=== PATIENT | female | born 1940 | race Caucasian/White ===

== ENCOUNTER → 2017-05-19 | Outpatient (CLI) | payer OTHER ==
--- NOTE | 2017-05-19 16:44 | KCIC ---
COMPLETE ABDOMINAL ULTRASOUND Clinical History: Suprapubic and periumbilical pain. Comparison: None. Technique: Sonographic examination of the abdomen was performed and multiple grayscale and color Doppler static images were obtained. Bladder is also imaged. Findings: Most of the liver is visualized and is homogeneous. The liver measures 12.4 cm. Ultrasound is not sensitive for detecting solid liver lesions. Portal flow is hepatopetal. The common bile duct is mildly dilated measuring up to 8 mm in diameter. The gallbladder wall is normal. Per report, sonographic Olson sign is negative. There is no cholelithiasis or pericholecystic fluid. The pancreas appears within normal limits. The right kidney is normal in echotexture and measures 10.9 cm. The left kidney is normal in echotexture and measures 12.9 cm. Corticomedullary differentiation is preserved. There is no hydronephrosis. The spleen is not enlarged, measuring 9.4 cm. Visualized portions of the abdominal aorta and IVC are normal. No urinary bladder wall thickening. The bladder is not well distended. Ureteral jets are not identified. IMPRESSION: Common bile duct is mildly dilated. No intrahepatic duct dilation is identified. Suggest correlation with laboratory values. Electronically signed by: Chris Hoff MD (05/19/2017 4:40 PM) [id number]
== END | disposition home or self-care (01) ==
LOC: KCIC US 14:04
PROVIDERS: ATTEND Family Medicine
DX: R10.33 Periumbilical pain (principal); Z90.710 Acquired absence of both cervix and uterus
CPT/HCPCS: 76700

== ENCOUNTER 2017-09-05 06:31 | Emergency (ER) | payer OTHER ==
[2017-09-05] MEDS: BENZONATATE 100 MG CAPSULE. PO (07:38)
[2017-09-05 08:55] LABS: ADD MAN DIFF? NO
[2017-09-05 09:01] LABS: BASO % 0 % (0-3); EOS # 0.1 x10^3/uL (0.0-0.7); EOS % 1 % (0-3); HEMATOCRIT 43.8 % (36.0-47.0); HEMOGLOBIN 14.7 g/dL (12.0-15.5); LYMPH # 0.7 x10^3/uL (1.0-4.8); LYMPH % 12 % (24-48); MEAN CORPUSCULAR HEMOGLOBIN 31 pg (25-35); MEAN CORPUSCULAR HGB CONC 34 g/dL (31-37); MEAN CORPUSCULAR VOLUME 92 fL (79-100); MONO # 0.8 x10^3/uL (0.0-1.1); MONO % 13 % (0-9); NEUT # 4.4 x10^3uL (1.8-7.7); NEUT % 74 % (31-73); PLATELET COUNT 182 x10^3/uL (140-400); RED BLOOD COUNT 4.76 x10^6/uL (3.50-5.40); RED CELL DISTRIBUTION WIDTH 12.4 % (11.5-14.5)
[2017-09-05 09:07] LABS: ANION GAP 8 (6-14); BLOOD UREA NITROGEN 13 mg/dL (7-20); BUN/CREATININE RATIO 19 (6-20); CALCIUM 9.7 mg/dL (8.5-10.1); CARBON DIOXIDE 31 mmol/L (21-32); CHLORIDE 103 mmol/L (98-107); CREATININE 0.7 mg/dL (0.6-1.0); GFR 81.6; GLUCOSE 141 mg/dL (70-99); POTASSIUM 3.7 mmol/L (3.5-5.1); SODIUM 142 mmol/L (136-145)
[2017-09-05 09:13] LABS: ALBUMIN 3.9 g/dL (3.4-5.0); ALK PHOS 75 U/L (46-116); ALT (SGPT) 11 U/L (14-59); AST (SGOT) 16 U/L (15-37); TOTAL BILIRUBIN 0.6 mg/dL (0.2-1.0); TOTAL PROTEIN 7.7 g/dL (6.4-8.2)
[2017-09-05] MEDS: IOHEXOL 300 MG/ML 100ML VIAL. IV (09:44)
[2017-09-05] MEDS ORDERED: CONTRAST GIVEN MC (09:45)
[2017-09-05 11:26] LABS: THYROID STIM HORMONE (TSH) 1.452 uIU/mL (0.358-3.74)
[2017-09-05 11:26] LABS: FREE T4 1.18 ng/dL (0.76-1.46)
== END 2017-09-05 11:50 | disposition home or self-care (01) ==
LOC: ER 06:31
DX: R05 Cough (principal); E04.1 Nontoxic single thyroid nodule; Z88.8 Allergy status to other drugs, medicaments and biological substances; Z88.6 Allergy status to analgesic agent; Z91.041 Radiographic dye allergy status
CPT/HCPCS: 36415; 71046; 71260; 80053; 84439; 84443; 85025; 99285-25; Q9967

== ENCOUNTER → 2017-10-09 | Outpatient (CLI) | payer OTHER | END | disposition home or self-care (01) | LOC: KCIC US 12:45 | DX: E04.2 Nontoxic multinodular goiter (principal) | CPT/HCPCS: 76536 ==

== ENCOUNTER → 2017-10-16 | Outpatient (CLI) | payer OTHER | END | disposition home or self-care (01) | LOC: US 13:26 | DX: E04.1 Nontoxic single thyroid nodule (principal); E11.9 Type 2 diabetes mellitus without complications; J44.9 Chronic obstructive pulmonary disease, unspecified | CPT/HCPCS: 76942; 88173; 88305 ==

== ENCOUNTER 2018-09-27 14:23 | Emergency (ER) | payer OTHER ==
[~2018-09-27] VITALS: Ht 170.2 cm; Wt 69.4 kg
[2018-09-27 15:00] LABS: BASO % 0 % (0-3); EOS % 0 % (0-3); HEMOGLOBIN 14.7 g/dL (12.0-15.5); LYMPH # 1.2 x10^3/uL (1.0-4.8); LYMPH % 12 % (24-48); MEAN CORPUSCULAR HEMOGLOBIN 32 pg (25-35); MEAN CORPUSCULAR HGB CONC 34 g/dL (31-37); MEAN CORPUSCULAR VOLUME 93 fL (79-100); MONO % 9 % (0-9); NEUT % 78 % (31-73); PLATELET COUNT 213 x10^3/uL (140-400); RED BLOOD COUNT 4.64 x10^6/uL (3.50-5.40); RED CELL DISTRIBUTION WIDTH 12.6 % (11.5-14.5); WHITE BLOOD COUNT 10.3 x10^3/uL (4.0-11.0)
[2018-09-27 15:02] LABS: BILIRUBIN,URINE NEGATIVE (NEG); CLARITY,URINE CLEAR; COLOR,URINE YELLOW; NITRITE,URINE NEGATIVE (NEG); PH,URINE 6.5; PROTEIN,URINE NEGATIVE (NEG-TRACE)
[2018-09-27 15:09] LABS: BARBITURATES NEG (NEG); BENZODIAZEPINES NEG (NEG); CANNABINOIDS NEG (NEG); COCAINE NEG (NEG); METHADONE NEG (NEG); OPIATES NEG (NEG); PHENCYCLIDINE NEG (NEG)
[2018-09-27 15:10] LABS: AMORPHOUS SEDIMENT,UR PRESENT /HPF; AMPHETAMINE/METHAMPHETAMINE NEG (NEG); BACTERIA,URINE 0 /HPF (0-FEW); SQUAMOUS EPITHELIAL CELL,UR OCC /LPF; WBC,URINE OCC /HPF (0-4)
--- NOTE | 2018-09-27 15:11 | RAD ---
RS Compliance Statement: One or more of the following individualized dose reduction techniques were utilized for this examination: 1. Automated exposure control 2. Adjustment of the mA and/or kV according to patient size 3. Use of iterative reconstruction technique CT head without contrast 09/27/2018 2:55 PM INDICATION: Weakness, multiple falls and dizziness. COMPARISON: None available TECHNIQUE: Multiple axial CT images of the head were obtained from skull base through the vertex without intravenous contrast. FINDINGS: Head: Ventricles, sulci and basal cisterns are within normal limits. There is no hydrocephalus. Jain-white matter differentiation is normal. There is no acute intracranial hemorrhage. There is no mass, mass effect or midline shift. Posterior fossa is normal in appearance. Low-attenuation in the periventricular white matter is suggestive of chronic small vessel ischemic changes. Visualized portions of the orbits are normal. Paranasal sinuses are well aerated. Mastoid air cells are well aerated. Scalp and calvaria are normal. IMPRESSION: No acute intracranial hemorrhage. Electronically signed by: Ann Marin MD (09/27/2018 3:08 PM) [facility]-[id number]
[2018-09-27 15:12] LABS: CALCIUM 9.4 mg/dL (8.5-10.1); CREATININE 0.7 mg/dL (0.6-1.0); GFR 81.4; POTASSIUM 4.1 mmol/L (3.5-5.1)
--- NOTE | 2018-09-27 15:13 | RAD ---
Chest radiograph 09/27/2018 3:02 PM INDICATION: Generalized weakness, dizziness COMPARISON: September 05, 2017 TECHNIQUE: Portable upright frontal view of the chest is provided. FINDINGS: The cardiomediastinal silhouette is within normal limits. There are no pleural effusions. There is no pulmonary vascular congestion. There is no pneumothorax. Patchy densities identified in the right upper lung. No significant osseous abnormality is identified. IMPRESSION: Patchy densities noted in the right upper lobe. Consideration may be given for developing infiltrate versus scarring or atelectasis. Electronically signed by: Ann Marin MD (09/27/2018 3:10 PM) [facility]-KCIC[facility]
[2018-09-27 15:17] LABS: ALBUMIN 3.7 g/dL (3.4-5.0); TOTAL BILIRUBIN 0.4 mg/dL (0.2-1.0); TOTAL PROTEIN 7.4 g/dL (6.4-8.2)
--- NOTE | 2018-09-27 16:27 | PHYS DOC ---
Past Medical History Past Medical History: Cancer, COPD, Diabetes-Type II, High Cholesterol, Hypothyroid, Other Additional Past Medical Histor: ULCERS,NEUROPATHY,BREAST CA/RADIATION Past Surgical History: Hysterectomy Additional Past Surgical Histo: HEMORRHOIDECTOMY, BACK SX Alcohol Use: None Drug Use: None Adult General Chief Complaint Chief Complaint: generalized weakness and nausea and dizziness [facility] HPI Patient is a 78 year old female who presents with complaining of generalized weakness, nausea, dizziness. Patient complaining of generalized weakness for several months without focal neuro deficit, patient also complaining of constant nausea without vomiting and dizziness patient has history of extensive depression and seen by her psychiatric one week ago. Patient's roommate states she has had severe depression and usually has dizziness and weakness in the morning and after 4 PM acting completely normal and moving around without any problem. Review of Systems Review of Systems Constitutional: Denies fever or chills, reports generalized weakness [] Eyes: Denies change in visual acuity, redness, or eye pain [] HENT: Denies nasal congestion or sore throat [] Respiratory: Denies cough or shortness of breath [] Cardiovascular: No additional information not addressed in HPI [] GI: Denies abdominal pain, nausea, vomiting, bloody stools or diarrhea [] : Denies dysuria or hematuria [] Musculoskeletal: Denies back pain or joint pain [] Integument: Denies rash or skin lesions [] Neurologic: Denies headache, focal weakness or sensory changes, reports dizziness [] Endocrine: Denies polyuria or polydipsia [] All other systems were reviewed and found to be within normal limits, except as documented in this note. Current Medications Current Medications Current Medications Medications (Trade) Dose Ordered Sig/Arelis Start Time Stop Time Status Last Admin Dose Admin Lorazepam (Ativan) 1 mg 1X ONCE 09/27/18 16:00 09/27/18 16:21 DC Sodium Chloride 500 ml @ 500 mls/hr 1X ONCE 09/27/18 16:30 09/27/18 17:29 DC 09/27/18 16:30 500 MLS/HR Allergies Allergies Allergies Coded Allergies Type Severity Reaction Last Updated Verified pregabalin Allergy Intermediate Hives 09/05/17 Yes lorazepam Allergy Mild Vertigo 09/27/18 Yes tramadol Allergy Mild Nausea 09/05/17 Yes Mzjidzz-Uln-Ocx Reductase Inhibitor Adverse Reaction Intermediate chest pain Yes Physical Exam Physical Exam Constitutional: Well nourished, mild distress, non-toxic appearance, talking very soft and slow. [] HENT: Normocephalic, atraumatic, oropharynx moist. Eyes: PERRLA, EOMI, conjunctiva normal, no discharge. [] Neck: Normal range of motion, no tenderness, supple, no stridor. [] Cardiovascular:Heart rate regular rhythm, no murmur [] Lungs & Thorax: Bilateral breath sounds clear to auscultation [] Abdomen: Bowel sounds normal, soft, no tenderness, no masses, no pulsatile masses. [] Skin: Warm, dry, no erythema, no rash. [] Back: No tenderness, no CVA tenderness. [] Extremities: No tenderness, no cyanosis, no clubbing, ROM intact, no edema. [] Neurologic: Alert and oriented X 3, normal motor function, normal sensory function, no focal deficits noted. [] Psychologic: Affect depressed Current Patient Data Vital Signs Vital Signs Date Time Temp Pulse Resp B/P (MAP) Pulse Ox O2 Delivery O2 Flow Rate FiO2 09/27/18 16:30 88 20 142/67 (92) 96 09/27/18 14:25 97.9 Room Air 97.9 Lab Values Laboratory Tests Test 09/27/18 14:35 09/27/18 14:37 09/27/18 14:52 White Blood Count 10.3 x10^3/uL (4.0-11.0) Red Blood Count 4.64 x10^6/uL (3.50-5.40) Hemoglobin 14.7 g/dL (12.0-15.5) Hematocrit 43.0 % (36.0-47.0) Mean Corpuscular Volume 93 fL (79-100) Mean Corpuscular Hemoglobin 32 pg (25-35) Mean Corpuscular Hemoglobin Concent 34 g/dL (31-37) Red Cell Distribution Width 12.6 % (11.5-14.5) Platelet Count 213 x10^3/uL (140-400) Neutrophils (%) (Auto) 78 % (31-73) H Lymphocytes (%) (Auto) 12 % (24-48) L Monocytes (%) (Auto) 9 % (0-9) Eosinophils (%) (Auto) 0 % (0-3) Basophils (%) (Auto) 0 % (0-3) Neutrophils # (Auto) 8.0 x10^3uL (1.8-7.7) H Lymphocytes # (Auto) 1.2 x10^3/uL (1.0-4.8) Monocytes # (Auto) 1.0 x10^3/uL (0.0-1.1) Eosinophils # (Auto) 0.0 x10^3/uL (0.0-0.7) Basophils # (Auto) 0.0 x10^3/uL (0.0-0.2) Urine Collection Type U cath Urine Color Yellow Urine Clarity Clear Urine pH 6.5 Urine Specific [place] 1.015 Urine Protein Negative mg/dL (NEG-TRACE) Urine Glucose (UA) 250 mg/dL (NEG) Urine Ketones (Stick) Negative mg/dL (NEG) Urine Blood Negative (NEG) Urine Nitrite Negative (NEG) Urine Bilirubin Negative (NEG) Urine Urobilinogen Dipstick 1.0 mg/dL (0.2 mg/dL) Urine Leukocyte Esterase Negative (NEG) Urine RBC 1-2 /HPF (0-2) Urine WBC Occ /HPF (0-4) Urine Squamous Epithelial Cells Occ /LPF Urine Amorphous Sediment Present /HPF Urine Bacteria 0 /HPF (0-FEW) Urine Mucus Slight /LPF Sodium Level 139 mmol/L (136-145) Potassium Level 4.1 mmol/L (3.5-5.1) Chloride Level 101 mmol/L (98-107) Carbon Dioxide Level 28 mmol/L (21-32) Anion Gap 10 (6-14) Blood Urea Nitrogen 18 mg/dL (7-20) Creatinine 0.7 mg/dL (0.6-1.0) Estimated GFR (Cockcroft-Gault) 81.4 BUN/Creatinine Ratio 26 (6-20) H Glucose Level 118 mg/dL (70-99) H Calcium Level 9.4 mg/dL (8.5-10.1) Magnesium Level 2.0 mg/dL (1.8-2.4) Total Bilirubin 0.4 mg/dL (0.2-1.0) Aspartate Amino Transferase (AST) 11 U/L (15-37) L Alanine Aminotransferase (ALT) 9 U/L (14-59) L Alkaline Phosphatase 78 U/L (46-116) Creatine Kinase 29 U/L (26-192) Troponin I Quantitative < 0.017 ng/mL (0.000-0.055) WN-Tnb-R-Type Natriuretic Peptide 32 pg/mL (0-449) Total Protein 7.4 g/dL (6.4-8.2) Albumin 3.7 g/dL (3.4-5.0) Albumin/Globulin Ratio 1.0 (1.0-1.7) Lipase 166 U/L (73-393) Thyroid Stimulating Hormone (TSH) 1.486 uIU/mL (0.358-3.74) Urine Opiates Screen Neg (NEG) Urine Methadone Screen Neg (NEG) Urine Barbiturates Neg (NEG) Urine Phencyclidine Screen Neg (NEG) Urine Amphetamine/Methamphetamine Neg (NEG) Urine Benzodiazepines Screen Neg (NEG) Urine Cocaine Screen Neg (NEG) Urine Cannabinoids Screen Neg (NEG) Urine Ethyl Alcohol Neg (NEG) Glucose (Fingerstick) 117 mg/dL (70-99) H Lactic Acid Level 1.7 mmol/L (0.4-2.0) Laboratory Tests 09/27/18 14:35 Laboratory Tests 09/27/18 14:35 EKG EKG EKG interpreted by me. EKG at 1439 showed normal sinus rhythm at rate of 93, nonspecific ST and T-wave abnormalities, normal MN and QT intervals, no acute ST and T-wave abnormalities. Radiology/Procedures Radiology/Procedures [facility] [address] [place] [address] IMAGING REPORT Signed PATIENT: JACKELIN DE JESUS ACCOUNT: [id number] : 1940 LOCATION: ER AGE: 78 SEX: F EXAM STATUS: REG ER ORD. PHYSICIAN: EDGARDO DE LOS SANTOS MD REASON: generalized weakness PROCEDURE: PORTABLE CHEST 1V Chest radiograph 09/27/2018 3:02 PM INDICATION: Generalized weakness, dizziness COMPARISON: September 05, 2017 TECHNIQUE: Portable upright frontal view of the chest is provided. FINDINGS: The cardiomediastinal silhouette is within normal limits. There are no pleural effusions. There is no pulmonary vascular congestion. There is no pneumothorax. Patchy densities identified in the right upper lung. No significant osseous abnormality is identified. IMPRESSION: Patchy densities noted in the right upper lobe. Consideration may be given for developing infiltrate versus scarring or atelectasis. Electronically signed by: Nathaniel Downs MD (09/27/2018 3:10 PM) [id number] DICTATED and SIGNED BY: NATHANIEL DOWNS MD DATE: 09/27/18 8006 [facility] [address] [place] [address] IMAGING REPORT Signed PATIENT: JACKELIN DE JESUS ACCOUNT: [id number] : 1940 LOCATION: ER AGE: 78 SEX: F EXAM STATUS: REG ER ORD. PHYSICIAN: EDGARDO DE LOS SANTOS MD REASON: weakness PROCEDURE: CT HEAD WO CONTRAST PQRS Compliance Statement: One or more of the following individualized dose reduction techniques were utilized for this examination: 1. Automated exposure control 2. Adjustment of the mA and/or kV according to patient size 3. Use of iterative reconstruction technique CT head without contrast 09/27/2018 2:55 PM INDICATION: Weakness, multiple falls and dizziness. COMPARISON: None available TECHNIQUE: Multiple axial CT images of the head were obtained from skull base through the vertex without intravenous contrast. FINDINGS: Head: Ventricles, sulci and basal cisterns are within normal limits. There is no hydrocephalus. Jain-white matter differentiation is normal. There is no acute intracranial hemorrhage. There is no mass, mass effect or midline shift. Posterior fossa is normal in appearance. Low-attenuation in the periventricular white matter is suggestive of chronic small vessel ischemic changes. Visualized portions of the orbits are normal. Paranasal sinuses are well aerated. Mastoid air cells are well aerated. Scalp and calvaria are normal. IMPRESSION: No acute intracranial hemorrhage. Electronically signed by: Nathaniel Downs MD (09/27/2018 3:08 PM) [id number] DICTATED and SIGNED BY: NATHANIEL DOWNS MD DATE: 09/27/18 5038 Course & Med Decision Making Course & Med Decision Making Pertinent Labs and Imaging studies reviewed. (See chart for details) Evaluation of patient in ER showed 78-year-old patient with severe depression without suicidal or homicidal ideation and complaining of multiple chronic problem. Patient had unremarkable physical exam and labs and treated with IV fluid and felt better and ambulated without problem. Patient was advised to follow-up with her primary care physician. Dragon Disclaimer Dragon Disclaimer This electronic medical record was generated, in whole or in part, using a voice recognition dictation system. Departure Departure Impression: Primary Impression: Depression Additional Impressions: Generalized weakness Dizziness Insomnia Disposition: HOME, SELF-CARE (at 17 oh to) Condition: STABLE Referrals: FELICITAS OLMEDO (PCP) Patient Instructions: Depression, Adult, Weakness Additional Instructions: Drink plenty of liquids Follow-up with your primary care physician in 3-5 days Return to ER if not getting better Continue home medication Scripts Ondansetron Hcl (ZOFRAN) 4 Mg Tablet 1 TAB PO PRN Q6-8HRS for nausea, #12 TAB Prov: EDGARDO DE LOS SANTOS MD 09/27/18 Problem Qualifiers Primary Impression: Depression Depression Type: major depressive disorder Major depression recurrence: recurrent Active/Remission status: remission status unspecified Qualified Codes: F33.9 - Major depressive disorder, recurrent, unspecified Additional Impressions: Insomnia Insomnia type: unspecified Qualified Codes: G47.00 - Insomnia, unspecified EDGARDO DE LOS SANTOS MD Sep 27, 2018 16:27
[2018-09-27 16:30] VITALS: BP 142/67
[2018-09-27] MEDS ORDERED: IV NORMAL SALINE 500ML BAG 500 ML IV ONE (16:30)
--- NOTE | 2018-09-27 16:39 | EKG ---
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
[2018-09-27] MEDS ORDERED: ONDA4TAB7 PO (17:04)
== END 2018-09-27 17:12 | disposition home or self-care (01) ==
LOC: ER 14:23
DX: R53.1 Weakness (principal); R11.0 Nausea; R42 Dizziness and giddiness; G47.00 Insomnia, unspecified; E78.00 Pure hypercholesterolemia, unspecified; E03.9 Hypothyroidism, unspecified; J44.9 Chronic obstructive pulmonary disease, unspecified; E11.40 Type 2 diabetes mellitus with diabetic neuropathy, unspecified; Z90.710 Acquired absence of both cervix and uterus; Z91.041 Radiographic dye allergy status; Z88.6 Allergy status to analgesic agent; Z88.8 Allergy status to other drugs, medicaments and biological substances
CPT/HCPCS: 36415; 70450; 71045; 80053; 80307; 81001; 82550; 82962; 83605; 83690; 83735; 83880; 84443; 84484; 85025; 87040; 93005; 96360; 99284; J7040

== ENCOUNTER → 2020-03-18 | Outpatient (CLI) | payer MEDICARE ==
[~2020-03-18] MED LIST: ONDA4TAB7 PO
--- NOTE | 2020-03-19 12:15 | KCIC ---
THYROID ULTRASOUND History: Thyroid nodule Comparison: October 09, 2017 Findings: Multiple sonographic images of the thyroid gland are submitted. Right lobe measured 5.6 x 2.2 x 2.4 cm. Left lobe measured 3.1 x 1.1 x 1.2 cm. Isthmus measured 0.6 m AP thickness. There is again heterogeneity of the thyroid parenchyma. There is again heterogeneous solid nodule with internal vascularity of the superior right gland about 2.2 x 1.9 x 2.7 cm (previously up to 2.5 cm). There is also heterogeneous solid nodule with internal vascularity of the inferior right gland about 2.8 x 2.8 x 1.8 cm (previously measured up to 2.5 cm). There are some foci of echogenicity associated with both of the right nodules likely due to calcifications. There is a 1.4 x 1.2 x 1.1 cm solid nodule of the mid left gland (previously up to 1.5 cm), some vascularity internally. Impression: 1. Left thyroid nodule is stable. There are again 2 solid heterogeneous right nodules with some associated calcification, very slightly larger than 2018 exam. Electronically signed by: Conner Sales MD (03/19/2020 12:12 PM) [id number]
== END | disposition home or self-care (01) ==
LOC: KCIC US 14:19
PROVIDERS: ATTEND Otolaryngology
DX: E04.2 Nontoxic multinodular goiter (principal)
CPT/HCPCS: 76536